=== PATIENT | female | born 1995 | race Caucasian/White ===

== ENCOUNTER 2019-07-23 07:12 | Outpatient (CLI) | payer OTHER, MEDICAID, SELFPAY ==
--- NOTE | 2019-07-23 | US_ITS ---
WS: [id number] OBSTETRICAL ULTRASOUND COMPLETE HISTORY: SUBSEQUENT IN SECOND TRIMESTER COMPARISON: None available. Single intrauterine gestation in Cephalic presentation. Cervix is Closed and normal length. Cervical length is 6.0 cm. Normal amount of amniotic fluid surrounds the fetus. Placenta: Posterior, no previa or abruption. Placenta grade 1 Heart: 128 BPM. Four chambers are identified. Anatomy: Intracranial structures and spine are normal. kidneys, stomach and urinary bladd er are unremarkable. Abdominal wall, three-vessel cord and cord insertion site are normal. 4 extremities are present. profile: Unremarkable. Gender: Female. measurements: BPD = 4.5 cm = 19w4d HC = 16.7 cm = 19w3d AC = 14.3 cm = 19w4d FL = 3.1 cm = 19w4d EFW: 302 g., Measurements are internally concordant. AGA by ultrasound: 19 weeks 4 days ARIADNE by ultrasound: 12/13/2019 US/US OB >= 14 weeks fetus [id number] IMPRESSION: 1. Single intrauterine gestation of 19 weeks 4 days with an EDC of 12/13/2019. 2. Unremarkable screening survey of anatomy.
== END 2019-07-23 07:13 | disposition home or self-care (01) ==
LOC: RADOUTREAD 13:49
PROVIDERS: Family Provider Pediatrics Adolescent Medicine; PCP Pediatrics Adolescent Medicine; Visit Provider Family Medicine
DX: Z76.89 Persons encountering health services in other specified circumstances (principal)

== ENCOUNTER 2019-12-01 09:51 | Inpatient (IN) | payer OTHER, MEDICAID, SELFPAY ==
[2019-12-01] VITALS (89 sets, daily range): BP systolic 0–140; BP diastolic 0–73; PULSE 62–109; RESP 17–18; TEMP 36.7–37.1; O2SAT 90–100; BMI 24.4
[2019-12-01 11:50] LABS: Basophils % 0.2 %; Eosinophils # 0.1 10^3/uL (0.0-0.8); Eosinophils % 0.6 %; Hematocrit 29.1 % (37.0-47.0); Hemoglobin 8.8 g/dL (11.5-15.3); Lymphocytes # 1.8 10^3/uL (0.8-4.8); Mean Corpuscular HGB Conc 30.2 g/dL (30.0-36.0); Mean Corpuscular Hemoglobin 24.3 pg (28.0-34.0); Mean Corpuscular Volume 80.4 fL (81-99); Mean Platelet Volume 9.6 fL (7.4-10.4); Monocytes # 0.4 10^3/uL (0.2-0.9); Neutrophils # 8.03 10^3/uL (1.8-7.7); Neutrophils % 77.7 %; Nucleated Red Blood Cells % 0 %; Platelet Count 243 10^3/cmm (130-400); Red Blood Count 3.62 10^6/uL (4.1-5.3); White Blood Count 10.3 10^3/uL (4.0-10.0)
[2019-12-01] MEDS: dextrose 5%-lactated ringers 1,000 ML 125 ML IV (13:47)
[2019-12-01] MEDS: oxytocin 30 UNIT/500 ML BAG IV (13:48)
--- NOTE | 2019-12-01 16:22 | PC.NURSE ---
pt left lateral with right leg in stir up
--- NOTE | 2019-12-01 17:02 | PC.NURSE ---
pt in right lateral with left leg in stir up
--- NOTE | 2019-12-01 19:20 | ANES.PREANE2 ---
Pre-Anesthetic Assessment Pre-Anesthetic Assessment: Height/Weight: Height 1.65 m Weight 66.678 kg Temp Pulse Resp BP 98.4 F 79 17 108/58 12/01/19 13:30 12/01/19 19:18 12/01/19 13:30 12/01/19 19:18 Preop Diagnosis: iup Familial anesthetic complications: denies Was Beta Al taken within 24 hours: N/A Last Intake: 00:00 Meds/Allergies Current Medications: Current Medications Generic Name Dose Route Start Last Admin Trade Name Chon PRN Reason Stop Dose Admin Dextrose/Lactated Ringer's 1,000 mls @ 125 m ls/hr 12/01/19 11:30 12/01/19 13:47 Dextrose 5%-Lact ated Ringers IV 125 mls/hr .Q8H MISAEL Administration PFSH Anesthesia Female Reproductive History: : 3 Data Anesthesia CBC & Chem 7: 12/01/19 11:00 Other Labs: Laboratory Results - last 48 hr 12/01/19 11:00 WBC 10.3 H RBC 3.62 L Hgb 8.8 L Hct 29.1 L MCV 80.4 L MCH 24.3 L MCHC 30.2 RDW 13.0 Plt Count 243 MPV 9.6 Neut % (Auto) 77.7 Lymph % (Auto) 17.0 [place] % (Auto) 4.0 Eos % (Auto) 0.6 Baso % (Auto) 0.2 Neut # (Auto) 8.03 H Lymph # (Auto) 1.8 [place] # (Auto) 0.4 Eos # (Auto) 0.1 Baso # (Auto) 0.0 Nucleated RBC % (auto) 0 Nucleated RBCs # 0.0 Cardiac Studies: No Data to Display
[2019-12-01] MEDS: fentaNYL 50 mcg/mL INJ 2mL IV (19:35)
--- NOTE | 2019-12-01 20:53 | ANES.PROC ---
Anesthesia Procedures Procedure/Date: 12/01/19 Epidural: Time Out Performed: Yes Consents Signed: Procedure Consent and NPO Consent Consent: requested by attending/covering physician and from patient Lumbar Level: L3-L4 Epidural position: sitting Epidural procedure: sterile prep of area, 1% lidocaine to numb the area (3 cc), 18 g needle (L3-L4 interspace), negative for paresthesia passed, neg for paresthesia, test dose given (3 cc ), 0.2% Ropivacaine bolus ml (8 cc ), placed PCEA, no systemic response, sterile dressing applied and 0.2% Ropiavacaine @ mls/hr (13 mls/hr 5 cc Q 10 min max of 3 )
--- NOTE | 2019-12-01 21:54 | P.PCNOB_ITS ---
Delivery Note: Date of delivery: December 01, 2019 Pre-Delivery Course: The patient is a 24-year-old 3 para 2-0-0-2 with an estimated gestational age of 39 weeks who presented to the hospital with spontaneous rupture of membranes. The patient has had a previous vaginal delivery, and in her second a section. We discussed the pros and cons of a scheduled versus trial of labor after section, and the patient had made it clear that she wanted to proceed with a trial of labor after section. She presented to the hospital but was not having any contractions despite having obvious grossly ruptured membranes. After waiting several hours, I placed her on Pitocin and gradually ramped up her dose. She was GBS negative. She had an epidural placed. She progressed to complete without difficulty. Delivery: DELIVERY: The patient progressed to complete without difficulty. She delivered a female with a weight of 7 pounds 1 ounce with Apgars of 9, 9. The baby was delivered from the MARIANA position. The baby's mouth and nose were suctioned shortly after the delivery of the . The baby was placed on the mother's abdomen. The cord was then clamped and cut. There was no nuchal cord. There was no meconium. The placenta and 3 vessel cord were delivered intact shortly thereafter. The perineum and vaginal vault were carefully examined. No significant lacerations were noted. Both the mother and the baby were in stable condition. A&P Assessment and plan (1) , delivered: I anticipate routine care. The patient will either go home tomorrow night late, or on Monday morning Status: Acute (2) 39 weeks gestation of : Status: Acute Coding Level of Care Code Acute Statistical Programmer Analyst for Chg Fwd Diagnoses , delivered O34.219 39 weeks gestation of Z3A.39
[2019-12-02] VITALS (9 sets, daily range): BP systolic 95–118; BP diastolic 47–75; PULSE 71–114; RESP 14–18; TEMP 36.5–37.1; O2SAT 96–98
[2019-12-02] MEDS: acetaminophen 325 mg Tablet 650 MG PO (00:11)
--- NOTE | 2019-12-02 06:59 | PM.OBGYDC ---
Discharge Providers UNIVERSITY RELATIONS VICE PRESIDENT Date of Admission: 12/01/19 09:50 Date of Discharge: 12/02/19 Attending Provider at Admission: Walter Tsai MD Attending Provider at Discharge: Walter Tsai MD Primary Care Provider: Walter Tsai Diagnoses at Discharge Discharge Diagnosis (1) , delivered: Status: Acute (2) 39 weeks gestation of : Status: Acute Reason for Visit Reason for Visit: vaginal discharge Hospital Course Hospital Course: The patient is a 24-year-old 3 patient at 39 weeks who presented to the hospital after spontaneous rupture membranes. She had had a previous section. Her labor was augmented with Pitocin. She was given an epidural. She progressed to complete and had an unremarkable vaginal delivery. Her course was also unremarkable. She breast-fed well. Her bleeding was within normal limits. Her pain was well controlled. Information Peripartum Data: Infant Delivery Method: Vaginal Physical Exam Narrative: EXAM NARRATIVE: The patient is alert. She appears comfortable. Her heart has a regular rate and rhythm with no murmurs appreciated. Lungs are clear to auscultation bilaterally. Her fundus is firm and below the umbilicus. Discharge Data Data Completed and Pending: Pending at discharge Category Date Time Status Hemagram Timed Lab 12/02/19 09:49 Ordered Labs from last 24 hours 12/01/19 11:00 WBC 10.3 H RBC 3.62 L Hgb 8.8 L Hct 29.1 L MCV 80.4 L MCH 24.3 L MCHC 30.2 RDW 13.0 Plt Count 243 MPV 9.6 Neut % (Auto) 77.7 Lymph % (Auto) 17.0 [place] % (Auto) 4.0 Eos % (Auto) 0.6 Baso % (Auto) 0.2 Neut # (Auto) 8.03 H Lymph # (Auto) 1.8 [place] # (Auto) 0.4 Eos # (Auto) 0.1 Baso # (Auto) 0.0 Nucleated RBC % (a uto) 0 Nucleated RBCs # 0.0 Addt'l Data from Hospital Stay: CBC this morning is pending. Vitals: Last Vital Signs Temp 98 F 12/02/19 06:08 Pulse 74 12/02/19 06:08 Resp 14 12/02/19 06:08 BP 105/66 12/02/19 06:08 Pulse Ox 96 12/02/19 04:11 Discharge Plan Discharge Patient Disposition: Home Condition: Stable Prescriptions: New ibuprofen 800 mg Tablet 800 mg PO TID Qty: 45 RF: 0 -U 106.5-1 mg Capsule 1 cap PO BREAKFAST Qty: 45 RF: 0 Discharge Orders: Discharge Order (Routine); Ordered 12/02/19 Ordered By: Walter Tsai Referrals: Walter Tsai MD [Physician] - 6 Weeks Discharge Diet: Usual diet Discharge Activity: Limit activity as instructed Discharge Attestations UNIVERSITY RELATIONS VICE PRESIDENT Time Spent in Discharge Care*: less than 30 min Coding Level of Care Code Acute Excellence Manager for Chg Fwd Diagnoses , delivered O34.219 39 weeks gestation of Z3A.39
[2019-12-02] MEDS: prenatal vitamin Capsule 1 CAP PO (08:36)
[2019-12-02] MEDS: docusate sodium 100 mg Capsule PO (08:36)
[2019-12-02] MEDS: ferrous sulfate EC 325 mg Tablet PO (08:36)
[2019-12-02 10:08] LABS: Hematocrit 27.8 % (37.0-47.0); Hemoglobin 8.4 g/dL (11.5-15.3); Mean Corpuscular HGB Conc 30.2 g/dL (30.0-36.0); Mean Corpuscular Hemoglobin 24.3 pg (28.0-34.0); Mean Corpuscular Volume 80.6 fL (81-99); Mean Platelet Volume 9.6 fL (7.4-10.4); Platelet Count 235 10^3/cmm (130-400); Red Blood Count 3.45 10^6/uL (4.1-5.3); White Blood Count 13.1 10^3/uL (4.0-10.0)
--- NOTE | 2019-12-02 12:41 | PC.NURSE ---
BABY NOT NURSING VERY WELL, THIS WINDOWS SECURITY ANALYST STAYED AND VISITED WITH MOM AND THEN TOOK BABY TO NURSERY AND DID SOME THINGS WITH HER AND THEN TOOK BABY BACK TO PARENTS AND HELPED MOM GET BABY LATCHED ON AND BABY WAS NURSING WHEN I LEFT THE ROOM.
== END 2019-12-02 23:15 | disposition home or self-care (01) | DRG 807 ==
LOC: OPOB 11:32 → OBGYN 12-02 06:59
PROVIDERS: Admitting Provider Family Medicine; Family Provider Pediatrics Adolescent Medicine; PCP Pediatrics Adolescent Medicine; Visit Provider Family Medicine
DX: O42.02 Full-term premature rupture of membranes, onset of labor within 24 hours of rupture (principal); Z37.0 Single live birth; Z3A.39 39 weeks gestation of pregnancy; O34.211 Maternal care for low transverse scar from previous cesarean delivery; N85.8 Other specified noninflammatory disorders of uterus
CPT/HCPCS: 12345; 36415; 51702; 59025; 59409; 83986; 85025; 85027; 96374; 96375; 99211; J2405; J2795; J3010